=== PATIENT | male | born 1975 | race Caucasian/White ===

== ENCOUNTER 2018-04-11 09:32 | Day surgery (SDC) | payer OTHER ==
[~2018-04-11 09:32] MED LIST: GLYCOPYRROLATE 0.4 MG INJ; LIDOCAINE 2% (SDV) 5 ML INJ
[2018-04-11 10:51] LABS: ADD MAN DIFF? NO
[2018-04-11 10:54] LABS: BASOPHILS % 0.6 % (0.0-2.0); EOSINOPHILS % 0.6 % (0.0-7.0); HEMATOCRIT 45.4 % (42.0-52.0); HEMOGLOBIN 15.5 g/dl (14.0-18.0); LYMPHOCYTES # 1.4 10^3/ul (0.8-2.9); LYMPHOCYTES % 27.6 % (15.0-51.0); MEAN CORPUSCULAR HEMOGLOBIN 31.3 pg (29.0-33.0); MEAN CORPUSCULAR HGB CONC 34.1 g/dl (32.0-37.0); MEAN CORPUSCULAR VOLUME 91.5 fl (82.0-101.0); MEAN PLATELET VOLUME 10.8 fl (7.4-10.4); MONOCYTE # 0.4 10^3/ul (0.3-0.9); MONOCYTES % 7.6 % (0.0-11.0); NEUTROPHIL # 3.2 10^3/ul (1.6-7.5); NEUTROPHILS % 63.2 % (39.0-77.0); PLATELET COUNT 160 10^3/UL (140-415); RED BLOOD COUNT 4.96 10^6/ul (4.70-6.10); RED CELL DISTRIBUTION WIDTH 12.6 % (11.5-14.5)
[2018-04-11 10:54] LABS: WHITE BLOOD COUNT 5.1 10^3/ul (4.8-10.8)
[2018-04-11 10:57] LABS: ADD UMIC NO; UR ASCORBIC ACID NEGATIVE (NEGATIVE); UR BILIRUBIN (Dip) NEGATIVE (NEGATIVE); UR BLOOD (Dip) NEGATIVE (NEGATIVE); UR CLARITY CLEAR (CLEAR); UR COLOR YELLOW (YELLOW); UR GLUCOSE (Dip) NEGATIVE (NEGATIVE); UR KETONES (Dip) NEGATIVE (NEGATIVE); UR LEUKOCYTE ESTERASE (Dip) NEGATIVE Leu/ul (NEGATIVE); UR NITRITE (Dip) NEGATIVE (NEGATIVE); UR SPECIFIC GRAVITY (Dip) 1.017 (1.003-1.030); UR TOTAL PROTEIN (Dip) NEGATIVE (NEGATIVE); UR UROBILINOGEN (Dip) NEGATIVE (NEGATIVE)
[2018-04-11 11:12] LABS: ALANINE AMINOTRANSFERASE 70 IU/L (13-69); ALBUMIN 4.8 g/dl (3.3-4.9); ALBUMIN/GLOBULIN RATIO 1.26; ALKALINE PHOSPHATASE 62 IU/L (42-121); ANION GAP 10 (5-13); ASPARTATE AMINO TRANSFERASE 41 IU/L (15-46); BILIRUBIN,INDIRECT 0.6 mg/dl (0-1.1); BILIRUBIN,TOTAL 0.6 mg/dl (0.2-1.3); BLOOD UREA NITROGEN 14 mg/dl (7-20); CALCIUM 9.3 mg/dl (8.4-10.2); CARBON DIOXIDE 25 mmol/L (21-31); CHLORIDE 108 mmol/L (97-110); CREATININE 0.83 mg/dl (0.61-1.24); Estimated GFR > 60 mL/min (>60); GLUCOSE 118 mg/dl (70-220); POTASSIUM 4.3 mmol/L (3.5-5.1); SODIUM 143 mmol/L (135-144); TOTAL PROTEIN 8.6 g/dl (6.1-8.1)
[2018-04-11] MEDS ORDERED: PROPOFOL 20 ML (12:00)
[2018-04-11] MEDS ORDERED: ROCURONIUM 50 MG INJ (12:01)
[2018-04-11] MEDS ORDERED: DEXAMETHASONE 4 MG/ML 1 ML INJ (12:18)
[2018-04-11] MEDS ORDERED: KETOROLAC 30 MG INJ (12:18)
[2018-04-11] MEDS ORDERED: CEFAZOLIN 1 GM INJ (12:19)
[2018-04-11] MEDS ORDERED: ONDANSETRON 4 MG INJ (12:19)
[2018-04-11] MEDS ORDERED: LABETALOL HCL 20MG INJ (12:21)
[2018-04-11] MEDS ORDERED: ROPIVACAINE 0.5 % 30 ML VIAL (13:19)
[2018-04-11] MEDS ORDERED: GLYCOPYRROLATE 0.4 MG INJ (13:29)
[2018-04-11] MEDS ORDERED: NEOSTIGMINE 3 MG/3 ML SYRINGE (13:29)
[2018-04-11] MEDS ORDERED: SOD CHLORIDE 0.9% 1,000 ML IV (13:30)
[2018-04-11] MEDS ORDERED: OXYCODONE/ACETAMINOPHEN (5/325) TAB PO ×4 (13:30→14:00)
[2018-04-11] MEDS ORDERED: morphine 2 MG INJ IV (13:30)
[2018-04-11] MEDS ORDERED: ONDANSETRON 4 MG INJ IV ×2 (13:30→14:00)
[2018-04-11] MEDS ORDERED: LABETALOL HCL 20MG INJ IV (14:00)
[2018-04-11] MEDS ORDERED: ALBUTEROL 0.083% (NEB) 2.5 MG/3 ML AMP HHN (14:00)
[2018-04-11] MEDS ORDERED: FENTAnyl 50 MCG/ML VIAL IV ×3 (14:00)
[2018-04-11] MEDS ORDERED: HYDROmorphONE 1 MG/5 ML IV SYRINGE IV ×3 (14:00)
[2018-04-11] MEDS ORDERED: DIPHENHYDRAMINE 50 MG INJ IV (14:00)
[2018-04-11] MEDS ORDERED: METOCLOPRAMIDE 10 MG INJ IV (14:00)
[2018-04-11] MEDS ORDERED: EPHEDrine SULFATE 50 MG/5 ML SYG IV (14:00)
[2018-04-11] MEDS ORDERED: hydrALAzine 20 MG INJ IV (14:00)
[2018-04-11] MEDS ORDERED: MEPERIDINE 25 MG INJ IV (14:00)
== END 2018-04-11 15:13 | disposition home or self-care (01) ==
LOC: SDS 09:32
DX: M22.41 Chondromalacia patellae, right knee (principal); E11.9 Type 2 diabetes mellitus without complications; I10 Essential (primary) hypertension; I25.10 Atherosclerotic heart disease of native coronary artery without angina pectoris; E78.5 Hyperlipidemia, unspecified
CPT/HCPCS: 29870; 80053; 81003; 82962; 85025